=== PATIENT | female | born 1950 | race Asian ===

== ENCOUNTER 2023-11-08 16:50 | Outpatient (CLI) | payer OTHER, SELFPAY ==
--- NOTE | ~2023-11-08 | XR_ITS ---
EXAMINATION: XR hip BI 2V w AP pelvis DATE: 11/08/2023 17:38 INDICATION: Instability. TECHNIQUE: An anteroposterior view of the pelvis and 2 views of each hip were obtained. COMPARISON: None. FINDINGS: There is lumbar levoscoliosis and severe spondylosis. No fracture. There is mild osteoarthr itis of the hips. IMPRESSION: 1. Mild osteoarthritis of the hips. Reviewed, dictated and finalized at location E. D MANAGER
--- NOTE | ~2023-11-08 | XR_ITS ---
EXAMINATION: XR knee RT 3V DATE: 11/08/2023 17:38 INDICATION: Right knee instability. TECHNIQUE: 3 views of right knee were obtained. COMPARISON: None. FINDINGS: Bone alignment is normal. No fracture. There is mild tricompartmental osteoarthritis. No kn ee joint effusion. IMPRESSION: 1. Mild right knee osteoarthritis. Reviewed, dictated and finalized at location E. URCE AGENT
--- NOTE | ~2023-11-08 | XR_ITS ---
EXAMINATION: XR knee LT 3V DATE: 11/08/2023 17:38 INDICATION: Left knee instability. TECHNIQUE: 3 views of left knee were obtained. COMPARISON: None. FINDINGS: Bone alignment is normal. No fracture. There is moderate osteoarthritis of medial compartme nt, mild osteoarthritis of lateral compartment, and severe osteoarthritis of patellofemoral compartme nt. No knee joint effusion. IMPRESSION: 1. Severe left knee osteoarthritis. Reviewed, dictated and finalized at location E. RPRETER FOR THE DEAF
--- NOTE | ~2023-11-08 | XR_ITS ---
EXAMINATION: XR lumbar spine 2-3V DATE: 11/08/2023 17:38 INDICATION: Back pain. Instability. TECHNIQUE: 3 views of lumbar spine were obtained. COMPARISON: None. FINDINGS: There is 15 degrees dextroscoliosis of thoracolumbar spine. There is 7 degrees levocurvatur e of lumbar spine. There is mild chronic anterior wedging of L1 vertebral body. There is severely dec reased disc height from T12-L1 through L5-S1. There is multilevel severe facet joint osteoarthritis. Surgical clips in the right upper quadrant are likely from cholecystectomy. IMPRESSION: 1. Severe lumbar spondylosis. 2. Scoliosis. Reviewed, dictated and finalized at location E. FRYER ASSEMBLER
== END 2023-11-08 16:51 | disposition home or self-care (01) ==
DX: M47.896 Other spondylosis, lumbar region (principal); M41.9 Scoliosis, unspecified; M16.0 Bilateral primary osteoarthritis of hip; M17.0 Bilateral primary osteoarthritis of knee
CPT/HCPCS: 72100; 73521; 73562

== ENCOUNTER 2023-12-01 14:45 | Outpatient (CLI) | payer OTHER, SELFPAY ==
--- NOTE | ~2023-12-01 | MR_ITS ---
EXAMINATION: MR hip RT wo con DATE: 12/01/2023 15:06 INDICATION: Right hip pain. TECHNIQUE: Magnetic resonance imaging (MRI) of the right hip was performed without intravenous contra st. COMPARISON: Pelvis and hip radiographs 11/08/2023 FINDINGS: Bones/cartilage: There is thoracolumbar dextroscoliosis and severe spondylosis. The femoral head/neck morphologies are normal. The hips demonstrate tiny osteophytes. Small [id number] images of right hip demonstrate p artial-thickness cartilage loss anterosuperiorly. Labrum: The acetabular aquiles are normal. Fluid: There is no hip joint effusion. There is mild right trochanteric bursitis. Soft tissues: There is mild tendinopathy of the anterior margins. The iliopsoas tendons are normal. The gluteus min imus and gluteus medius tendons are normal. IMPRESSION: 1. Mild osteoarthritis of the hips. 2. Asymmetric mild right trochanteric bursitis. 3. Severe lumbar spondylosis. Reviewed, dictated and finalized at location A. ENT DEVELOPMENT DEAN
--- NOTE | ~2023-12-01 | MR_ITS ---
EXAMINATION: MR lumbar spine wo con DATE: 12/01/2023 15:06 INDICATION: RADICULOPATHY . TECHNIQUE: Magnetic resonance imaging (MRI) of the lumbar spine was performed without intravenous con trast. Sequences included sagittal T2-weighted FSE, sagittal T2-weighted FS FSE, sagittal T1-weighted FSE, and axial T2-weighted FSE. COMPARISON: X-ray lumbar spine 11/08/2023 FINDINGS: The last fully formed and hydrated disc is designated L5-S1. The marrow signal is benign an d homogenous. Conus terminates at L1. Loss of the normal lumbar lordosis. Moderate lumbar scoliosis. Multilevel severe degenerative disc space narrowing and disc dehydration. Grade 1 anterolisthesis at L3-4 and L4-5. Grade 1 retrolisthesis at L5-S1. Bilateral pars defects at L5-S1. Bilateral simple lilo al cysts. Small uterine fibroid. The following disc levels are specifically discussed: T11-T12: Mild diffuse bulge with a 7 mm left subarticular extrusion. There is moderate bilateral face t joint osteoarthritis. There is severe right and no left neural foraminal stenosis. There is no cent ral canal stenosis. T12-L1: Mild diffuse bulge. 3 mm foraminal protrusion. There is moderate bilateral facet joint osteoa rthritis. There is mild right and severe left neural foraminal stenosis. There is mild central canal stenosis. L1-L2: Moderate diffuse bulge. There is severe bilateral facet joint osteoarthritis. There is mild ri ght and severe left neural foraminal stenosis. There is moderate central canal stenosis. L2-L3: Moderate diffuse bulge. There is severe bilateral facet joint osteoarthritis. There is moderat e bilateral neural foraminal stenosis. There is severe central canal stenosis. L3-L4: Large diffuse bulge. There is severe bilateral facet joint osteoarthritis. There is severe rig ht and moderate left neural foraminal stenosis. There is critical central canal stenosis. L4-L5: Moderate diffuse bulge. There is severe bilateral facet joint osteoarthritis. There is severe bilateral neural foraminal stenosis. There is severe central canal stenosis. L5-S1: Moderate diffuse bulge. Large disc rent. There is moderate bilateral facet joint osteoarthriti s. There is severe bilateral neural foraminal stenosis. There is critical central canal stenosis. IMPRESSION: Critical canal stenosis at L3-4 and L5-S1. Multiple additional levels of severe central canal stenosi s. Multilevel bilateral severe neural foraminal narrowing. Multilevel grade 1 listheses. Moderate lumbar scoliosis. Severe multilevel degenerative disc disease and facet arthropathy. Reviewed, dictated and finalized at location K. STRAIGHTENER IMPRESSION: Critical canal stenosis at L3-4 and L5-S1. Multiple additional levels of severe central canal stenosis. Multilevel bilateral severe neural foraminal narrowing. Multilevel grade 1 listheses. Moderate lumbar scoliosis. Severe multilevel degenerative disc disease and facet arthropathy.
== END 2023-12-01 14:46 | disposition home or self-care (01) ==
LOC: ANHIMG 14:46
PROVIDERS: Visit Provider Physical Medicine & Rehabilitation Pain Medicine
DX: M16.0 Bilateral primary osteoarthritis of hip (principal); M70.61 Trochanteric bursitis, right hip; M47.26 Other spondylosis with radiculopathy, lumbar region; M47.27 Other spondylosis with radiculopathy, lumbosacral region; M51.36 Other intervertebral disc degeneration, lumbar region
CPT/HCPCS: 72148; 73721